=== PATIENT | female | born 1960 | race Caucasian/White ===

== ENCOUNTER 2017-04-04 09:35 | Emergency (ER) | payer MEDICAID, OTHER ==
[~2017-04-04] VITALS: Ht 154.9 cm; Wt 71.2 kg
[2017-04-04 09:43] VITALS: BP 157/71
--- NOTE | 2017-04-04 09:51 | NUR ---
Patient ambulated to bed 4 with family. RN evaluating patient at bedside.
--- NOTE | 2017-04-04 09:56 | NUR ---
Dr. Mcmanus evaluating patient at bedside.
--- NOTE | 2017-04-04 10:15 | NUR ---
Assumed patient care, concur with previous assessments, diagnostic testing initiated, IV access established, lab specimen sent to lab.
[2017-04-04 10:22] LABS: BASOPHILS # (AUTO) 0.3 K/uL (0.00-0.22); BASOPHILS % (AUTO) 2.4 % (0.0-2.0); EOSINOPHILS # (AUTO) 0.2 K/uL (0-0.4); EOSINOPHILS % (AUTO) 2.3 % (0.0-4.0); HEMATOCRIT 41.7 % (36-48); HEMOGLOBIN 13.9 g/dL (12.0-16.0); LYMPHOCYTES # (AUTO) 1.8 K/uL (2.5-16.5); LYMPHOCYTES % (AUTO) 17.1 % (20.5-51.1); MEAN CORPUSCULAR HEMOGLOBIN 30 pg (27-31); MEAN CORPUSCULAR HGB CONC 33 g/dL (33-37); MEAN CORPUSCULAR VOLUME 90 fL (80-94); MONOCYTES # (AUTO) 0.5 K/uL (0.8-1.0); NEUTROPHILS # (AUTO) 7.7 K/uL (1.8-7.7); NEUTROPHILS % (AUTO) 73.2 % (42.2-75.2); PLATELET COUNT (AUTO) 248 K/uL (140-450); RED BLOOD CELL COUNT(AUTO) 4.66 MIL/uL (4.20-5.40); RED CELL DISTRIBUTION WIDTH 11.7 % (11.6-13.7); WHITE BLOOD COUNT (AUTO) 10.5 K/uL (4.8-10.8)
--- NOTE | 2017-04-04 10:24 | NUR ---
Patient taken to CT scan via gurney by Leatt.
[2017-04-04 10:38] LABS: ANION GAP 14.8 (8-16); CARBON DIOXIDE 21.9 mmol/L (21-32); CREATININE 0.9 mg/dL (0.6-1.3); POTASSIUM 3.7 mmol/L (3.5-5.1)
[2017-04-04 10:42] LABS: ALBUMIN 3.8 g/dL (3.4-5.0); TOTAL BILIRUBIN 0.6 mg/dL (0.0-1.0)
--- NOTE | 2017-04-04 10:42 | NUR ---
Patient returned from CT scan. RN re-evaluating patient at bedside.
[2017-04-04] MEDS ORDERED: oxyCODONE/APAP 5/325 MG 1 TAB TAB PO ONE (11:30)
--- NOTE | 2017-04-04 11:31 | NUR ---
MD at bedside reevaluating patient and updating patient accordingly.
[2017-04-04 11:52] VITALS: BP 142/78
--- NOTE | 2017-04-04 11:52 | NUR ---
Patient discharged with v/s stable. Written and verbal after care instructions given and explained. Patient alert, oriented and verbalized understanding of instructions. Ambulatory with steady gait. All questions addressed prior to discharge. ID band removed. Patient advised to follow up with PMD. Rx of Motrin and [place] given. Patient educated on indication of medication including possible reaction and side effects. Opportunity to ask questions provided and answered.
== END 2017-04-04 11:52 | disposition home or self-care (01) ==
LOC: MED 09:35
DX: N20.1 Calculus of ureter (principal); N13.30 Unspecified hydronephrosis; K80.20 Calculus of gallbladder without cholecystitis without obstruction; E11.9 Type 2 diabetes mellitus without complications; I10 Essential (primary) hypertension
CPT/HCPCS: 36415; 80053; 81002; 81025; 82150; 82948; 83690; 85025; 99285

== ENCOUNTER 2017-05-13 20:27 | Emergency (ER) | payer OTHER ==
[~2017-05-13] VITALS: Ht 165.1 cm; Wt 72.6 kg
[2017-05-13 20:30] VITALS: BP 159/75
--- NOTE | 2017-05-13 22:56 | NUR ---
PATIENT LEFT WITHOUT BEING SEEN BY DR. AKERS. NO FURTHER CARE PROVIDED FOR PATIENT.
== END 2017-05-13 22:56 | disposition left against medical advice (07) ==
LOC: MED 20:27
DX: M79.1 Myalgia (principal); R50.9 Fever, unspecified; Z53.21 Procedure and treatment not carried out due to patient leaving prior to being seen by health care provider

== ENCOUNTER 2018-02-01 00:25 | Emergency (ER) | payer OTHER ==
[~2018-02-01] VITALS: Ht 157.5 cm; Wt 72.6 kg
[2018-02-01 00:42] VITALS: BP 120/66
[2018-02-01 03:57] LABS: BASOPHILS # (AUTO) 0.1 K/uL (0.00-0.22); BASOPHILS % (AUTO) 0.7 % (0.0-2.0); EOSINOPHILS % (AUTO) 0.5 % (0.0-4.0); HEMATOCRIT 39.7 % (36-48); HEMOGLOBIN 13.7 g/dL (12.0-16.0); LYMPHOCYTES # (AUTO) 2.1 K/uL (2.5-16.5); LYMPHOCYTES % (AUTO) 21.4 % (20.5-51.1); MEAN CORPUSCULAR HEMOGLOBIN 30 pg (27-31); MEAN CORPUSCULAR HGB CONC 34 g/dL (33-37); MEAN CORPUSCULAR VOLUME 88.1 fL (80-94); MONOCYTES # (AUTO) 0.7 K/uL (0.8-1.0); MONOCYTES % (AUTO) 7.7 % (1.7-9.3); NEUTROPHILS # (AUTO) 6.7 K/uL (1.8-7.7); NEUTROPHILS % (AUTO) 69.7 % (42.2-75.2); PLATELET COUNT (AUTO) 237 K/uL (140-450); RED BLOOD CELL COUNT(AUTO) 4.51 MIL/uL (4.20-5.40); RED CELL DISTRIBUTION WIDTH 12.7 % (11.6-13.7); WHITE BLOOD COUNT (AUTO) 9.7 K/uL (4.8-10.8)
[2018-02-01 04:00] LABS: APPEARANCE,URINE CLEAR (CLEAR); BILIRUBIN,URINE NEGATIVE (NEGATIVE); BLOOD, URINE NEGATIVE (NEGATIVE); COLOR,URINE YELLOW (YELLOW); LEUKOCYTE ESTERASE ,URINE NEGATIVE (NEGATIVE); NITRITE, URINE NEGATIVE (NEGATIVE); PH,URINE 5.5 (5.0-9.0); UGLUCOSE 3+ (NEGATIVE)
[2018-02-01 04:08] LABS: ANION GAP 11.2 (8-16); CARBON DIOXIDE 27.5 mmol/L (21-32); CREATININE 0.6 mg/dL (0.6-1.3); POTASSIUM 3.7 mmol/L (3.5-5.1)
[2018-02-01] MEDS: LEVOFLOXACIN 500 MG/D5W PREMIX 100 ML IV ONE (04:08)
[2018-02-01] MEDS: NACL 0.9% 1,000 ML IV ONE (04:08)
[2018-02-01 04:14] LABS: ALBUMIN 3.3 g/dL (3.4-5.0); TOTAL BILIRUBIN 0.4 mg/dL (0.0-1.0)
[2018-02-01 04:25] LABS: RBC,URINE 0-5 (RARE) /HPF (0-5); WBC,URINE 0-5 (RARE) /HPF (0-5)
[2018-02-01 04:26] LABS: YEAST,URINE Few /HPF (None Seen)
[2018-02-01 05:00] VITALS: BP 128/60
== END 2018-02-01 04:39 | disposition home or self-care (01) ==
LOC: MED 00:25
DX: K52.9 Noninfective gastroenteritis and colitis, unspecified (principal); E11.9 Type 2 diabetes mellitus without complications; I10 Essential (primary) hypertension
CPT/HCPCS: 36415; 80053; 81001; 82948; 85025; 87086; 96365; 99284; J1956; J7030

== ENCOUNTER 2019-06-20 15:29 | Emergency (ER) | payer SELFPAY ==
[~2019-06-20] VITALS: Ht 157.5 cm; Wt 86.2 kg
[2019-06-20 15:40] VITALS: BP 158/65
--- NOTE | 2019-06-20 15:40 | NUR ---
PT TAKEN TO BED 12.
--- NOTE | 2019-06-20 16:08 | NUR ---
PT BIB FAMILY C/O RIGHT LOWER JAW AND NECK PAIN SINCE YESTERDAY MORNING. PT REPORTS A HARD PAINFUL LUMP TO AREA, PAIN WITH SWALLOWING. + LT EAR PAIN. NECK PAIN AT 7/10, ACHY, RADIATES UP LT SIDE OF FACE. DENIES FEVER OR CHILLS. NO DROOLING NOTED. - COUGH, AIRWAY PATENT, NO EXCESS DROLLING NOTED, VOICE CLEAR. VSS. ER MD TO SEE PT. HX HTN, DM
[2019-06-20] MEDS: HYDROcodone/APAP 5/325 MG 1 TAB TAB PO ONE (16:51)
[2019-06-20 17:35] LABS: BASOPHILS % (AUTO) 0.1 % (0.0-2.0); EOSINOPHILS % (AUTO) 0.4 % (0.0-4.0); HEMOGLOBIN 13.8 g/dL (12.0-16.0); LYMPHOCYTES # (AUTO) 1.8 K/uL (2.5-16.5); LYMPHOCYTES % (AUTO) 15.5 % (20.5-51.1); MEAN CORPUSCULAR HEMOGLOBIN 31 pg (27-31); MEAN CORPUSCULAR HGB CONC 34 g/dL (33-37); MEAN CORPUSCULAR VOLUME 90.5 fL (80-94); MONOCYTES # (AUTO) 0.7 K/uL (0.8-1.0); MONOCYTES % (AUTO) 5.8 % (1.7-9.3); NEUTROPHILS % (AUTO) 78.2 % (42.2-75.2); PLATELET COUNT (AUTO) 265 K/uL (140-450); RED BLOOD CELL COUNT(AUTO) 4.53 MIL/uL (4.20-5.40); RED CELL DISTRIBUTION WIDTH 12.6 % (11.6-13.7); WHITE BLOOD COUNT (AUTO) 11.6 K/uL (4.8-10.8)
[2019-06-20 17:52] LABS: ANION GAP 16.3 (8-16); CARBON DIOXIDE 22.4 mmol/L (21-32); CREATININE 0.6 mg/dL (0.6-1.3); POTASSIUM 3.7 mmol/L (3.5-5.1)
[2019-06-20 17:55] LABS: PROTHROMBIN TIME 9.4 secs (10.8-13.4)
[2019-06-20 18:03] LABS: ALBUMIN 3.4 g/dL (3.4-5.0); TOTAL BILIRUBIN 0.5 mg/dL (0.0-1.0)
[2019-06-20 19:19] VITALS: BP 142/60
== END 2019-06-20 19:19 | disposition home or self-care (01) ==
LOC: MED 15:29
DX: R22.1 Localized swelling, mass and lump, neck (principal); R68.84 Jaw pain; E11.9 Type 2 diabetes mellitus without complications; I10 Essential (primary) hypertension; Z90.710 Acquired absence of both cervix and uterus
CPT/HCPCS: 36415; 76536; 80053; 85025; 85610; 85730; 87040; 99284; Q0092

== ENCOUNTER 2021-03-16 07:46 | Inpatient (IN) | payer OTHER ==
[~2021-03-16] VITALS: Ht 157.5 cm; Wt 81.6 kg
[2021-03-16 07:48] VITALS: BP 163/67
--- NOTE | 2021-03-16 07:48 | NUR ---
to bed ambulatory
[2021-03-16] MEDS ORDERED: ASPIRIN 81 MG TAB.CHEW PO ONE (07:55)
[2021-03-16] MEDS ORDERED: NITROGLYCERIN 0.4 MG TAB SL ONE (07:55)
[2021-03-16] MEDS ORDERED: ASPIRIN 81 MG TAB.CHEW ONE (07:58)
--- NOTE | 2021-03-16 08:00 | NUR ---
RECEIVED PT FROM MY[facility] ABREU - C/O CP X 4 DAYS. NO OBVIOUS DISTRESS NOTED. NSR ON MONITOR. FOR MSE IN TRIAGE.
--- NOTE | 2021-03-16 08:10 | NUR ---
PT REPORTS RELIEF OF PAIN AFTER ASA AND X1 NTG ADMIN
[2021-03-16 08:16] LABS: BASOPHILS % (AUTO) 0.5 % (0.0-2.0); EOSINOPHILS # (AUTO) 0.1 K/uL (0-0.4); EOSINOPHILS % (AUTO) 1.3 % (0.0-4.0); HEMATOCRIT 42.3 % (36-48); HEMOGLOBIN 14.2 g/dL (12.0-16.0); LYMPHOCYTES # (AUTO) 2.6 K/uL (2.5-16.5); LYMPHOCYTES % (AUTO) 34.8 % (20.5-51.1); MEAN CORPUSCULAR HEMOGLOBIN 30 pg (27-31); MEAN CORPUSCULAR HGB CONC 34 g/dL (33-37); MEAN CORPUSCULAR VOLUME 90.4 fL (80-94); MONOCYTES # (AUTO) 0.5 K/uL (0.8-1.0); MONOCYTES % (AUTO) 6.4 % (1.7-9.3); NEUTROPHILS # (AUTO) 4.3 K/uL (1.8-7.7); PLATELET COUNT (AUTO) 265 K/uL (140-450); RED BLOOD CELL COUNT(AUTO) 4.68 MIL/uL (4.20-5.40); RED CELL DISTRIBUTION WIDTH 12.8 % (11.6-13.7); WHITE BLOOD COUNT (AUTO) 7.5 K/uL (4.8-10.8)
[2021-03-16 08:48] LABS: ALBUMIN 3.7 g/dL (3.4-5.0); ANION GAP 12.2 (8-16); CARBON DIOXIDE 24.8 mmol/L (21-32); CREATININE 0.7 mg/dL (0.6-1.3); TOTAL BILIRUBIN 0.5 mg/dL (0.0-1.0)
--- NOTE | 2021-03-16 09:00 | NUR ---
PLAN OF CARE DISCUSSED WITH PATIENT AND DAUGHTER BEDSIDE, AGREEABLE TO PLAN.
--- NOTE | 2021-03-16 10:26 | NUR ---
DR GRAY AT BEDSIDE.
[2021-03-16] MEDS ORDERED: SIMV-30 PO (10:40)
[2021-03-16] MEDS ORDERED: GLIP10TA12 PO (10:40)
[2021-03-16] MEDS ORDERED: METF-1022 PO (10:40)
[2021-03-16] MEDS ORDERED: BENA10TA81 PO (10:40)
[2021-03-16] MEDS ORDERED: INSU100I7 SUBQ (10:40)
[2021-03-16] MEDS ORDERED: POTASSIUM CHLORIDE 10 MEQ TABER PO PRN (10:45)
[2021-03-16] MEDS ORDERED: MAGNESIUM OXIDE 400 MG TAB PO PRN (10:45)
[2021-03-16] MEDS ORDERED: BENAZEPRIL 10 MG TAB PO SCH (10:45)
[2021-03-16] MEDS ORDERED: KCL 20 MEQ/WATER INJ PREMIX 200 ML IV PRN (10:45)
[2021-03-16] MEDS ORDERED: ACETAMINOPHEN 325 MG TAB PO PRN (10:45)
[2021-03-16] MEDS ORDERED: MAG SULF 2000 MG/WATER PREMIX 50 ML IV PRN (10:45)
[2021-03-16] MEDS ORDERED: HYDROcodone/APAP 5/325 MG 1 TAB TAB PO PRN (10:45)
[2021-03-16] MEDS ORDERED: DEXTROSE 50% 50 ML SYR IVP PRN (10:45)
[2021-03-16] MEDS ORDERED: LORazepam 1 MG TAB PO PRN (10:45)
[2021-03-16] MEDS ORDERED: INSULIN LISPRO SLIDING SCALE 100 UNITS/ML VIAL SUBQ PRN (10:45)
[2021-03-16] MEDS ORDERED: ONDANSETRON 4 MG/2 ML VIAL IVP PRN (10:45)
[2021-03-16] MEDS ORDERED: BLOOD GLUCOSE MONITORING 1 DEV DEV FS SCH (11:30)
--- NOTE | 2021-03-16 11:30 | NUR ---
DR CHARLTON BEDSIDE.
[2021-03-16] MEDS ORDERED: ASPI-1822 PO (11:48)
--- NOTE | 2021-03-16 12:32 | NUR ---
ACCU CHECK-50 -1 AMP D50 IVP GIVEN, NADR AT THIS TIME, ER NOTIFITED
--- NOTE | 2021-03-16 12:35 | NUR ---
MEAL TRAY PROVIDED.
--- NOTE | 2021-03-16 12:44 | NUR ---
DR GRAY BEDSIDE, NOTIFIED OF PRN ORDER FOR BENAZIPRIL. VERBAL ORDER TO CHANGE TO DAILY. ALSO NOTIFIED OF DUPLICATE TROPONIN ORDER, OKAY TO CANCEL FOR TODAY.
[2021-03-16 13:43] VITALS: BP 129/59
--- NOTE | 2021-03-16 14:17 | NUR ---
IV removed, catheter intact and site benign. Applied folded 4x4 gauze and tape to stop bleeding.
--- NOTE | 2021-03-16 14:17 | NUR ---
PT LEFT FACILITY AMBUALTORY WITH DAUGHTER AND INPATIENT DISCHARGE INSTRUCTIONS.
[2021-03-17] MEDS ORDERED: INSULIN LANTUS 100 UNITS/ML 10 ML VIAL SUBQ SCH (06:30)
[2021-03-17] MEDS ORDERED: DOCUSATE SODIUM 100 MG GELCAP PO SCH (09:00)
[2021-03-17] MEDS ORDERED: SIMVASTATIN 20 MG TAB PO SCH (09:00)
[2021-03-17] MEDS ORDERED: BENAZEPRIL 10 MG TAB PO SCH (09:00)
== END 2021-03-16 14:17 | disposition home or self-care (01) | DRG 203 ==
LOC: MED 07:46 → MTU 10:09
PROVIDERS: ADMIT Hospitalist; ATTEND Hospitalist
DX: R07.89 Other chest pain (principal); I11.9 Hypertensive heart disease without heart failure; E11.9 Type 2 diabetes mellitus without complications; E78.5 Hyperlipidemia, unspecified; E66.9 Obesity, unspecified; Z79.4 Long term (current) use of insulin; Z68.32 Body mass index [BMI] 32.0-32.9, adult
CPT/HCPCS: 36415; 71045; 80053; 82552; 84484; 85025; 93005; 96374; 99285